=== PATIENT | female | born 1940 | race Caucasian/White ===

== ENCOUNTER 2019-04-20 13:02 | Outpatient (CLI) | payer MEDICARE, BC | END 2019-04-20 13:03 | disposition critical access hospital (66) | LOC: EMS 13:02 | PROVIDERS: ATTEND Surgery | DX: R51 Headache (principal); M54.5 Low back pain; W17.89XA Other fall from one level to another, initial encounter; Y93.H2 Activity, gardening and landscaping; Y92.007 Garden or yard of unspecified non-institutional (private) residence as the place of occurrence of the external cause | CPT/HCPCS: A0425; A0429 ==

== ENCOUNTER 2019-04-20 13:24 | Emergency (ER) | payer MEDICARE, BC ==
--- NOTE | 2019-04-20 13:22 | ED Physician Documentation ---
PD HPI Fall - Stated complaint Stated Complaint: FALL - History obtained from History obtained from: Patient - History of Present Illness Fall distance: Standing position, Less than 5ft Where injury occurred: Home Timing - onset: Today Injury(ies) location: Back Pain level now: 9 Associated symptoms: No: LOC, Amnesia, Neck pain, Paresthesias Worsens with: Movement Similar symptoms before: Has not had sx before Recently seen: Not recently seen - Additional information Additional information: This is a 78-year-old woman who was in the area of her yard and managed to go over the bulkhead onto the beach below. She estimates it was about 3 feet fall landing on rocks and see grass. She says she landed flat on her back. She had immediate pain in her lower back. She was unable to get up and laid there calling for help [place] heard her and was able to get the attention of some neighbors on [place]. At one point she sat up thinking she was getting up to get herself out of the situation with the pain in her back was so intense she had to lay back down. She thinks she may have laid there somewhere around 10 minutes. Ambulance came down onto the beach to get her off placing her on a backboard in a cervical collar. She is pain complaining of pain only in her back at a 9 out of 10. She did not hit her head she did not pass out. She has no pain radiating down her legs and no numbness or tingling. She is having trouble breathing just because it hurts to take a deep breath. She has had prior left-sided low back pain but nothing significant. She does have a history of osteoporosis. Review of Systems Respiratory: reports: Dyspnea Musculoskeletal: reports: Back pain. denies: Neck pain Neurologic: denies: Generalized weakness, Focal weakness, Numbness PD PAST MEDICAL HISTORY - Past Medical History Musculoskeletal: Osteoporosis - Present Medications Home Medications: Ambulatory Orders Medication Instructions Recorded Confirmed Acyclovir [Zovirax] 1,000 mg PO 04/20/19 Atorvastatin [Lipitor] 10 mg 04/20/19 Cyclobenzaprine [Flexeril] 10 mg PO TID PRN #20 tablet 04/20/19 Hydrocodone/Acetaminophen 1 - 2 each PO Q6H PRN #14 tablet 04/20/19 [Hydrocodon-Acetaminophen 5-325] - Allergies Allergies/Adverse Reactions: Allergies Allergy/AdvReac Type Severity Reaction Status Date / Time Sulfa (Sulfonamide Allergy Unknown Verified 04/20/19 13:33 Antibiotics) - Living Situation Living Situation: reports: With friend(s) Living Arrangement: reports: At home PD ED PE NORMAL - Vitals Vital signs reviewed: Yes - General General: Alert and oriented X 3, No acute distress, Well developed/nourished, Other (Patient is in a cervical collar and on a backboard.) - HEENT HEENT: Atraumatic, PERRL, EOMI, Moist mucous membranes - Neck Neck: Other (Remained in cervical collar until imaging could be cleared.) - Cardiac Cardiac: RRR, No murmur - Respiratory Respiratory: No respiratory distress - Abdomen Abdomen: Normal bowel sounds, Soft, Non tender, No organomegaly - Back Back: Other (Patient was logrolled. She had pain at the lower thoracic upper lumbar region as well as the lower lumbar midline. There is no bruising or open wound. Pelvis is stable and nontender. No pain with palpation over the chest wall. Extremities are atraumatic.) - Derm Derm: Normal color, Warm and dry, Other (No obvious abrasion or laceration.) - Extremities Extremities: No deformity, Normal ROM s pain, No edema - Neuro Neuro: Alert and oriented X 3, x ray technologist 2-12 intact, No motor deficit, No sensory deficit, Normal speech Results - Vitals Vitals: Vital Signs - 24 hr 04/20/19 04/20/19 04/20/19 13:29 14:05 15:02 Temperature 37.1 C Heart Rate 71 86 71 Respiratory 16 18 16 Rate Blood Pressure 151/84 H 142/85 H 131/73 H O2 Saturation 99 99 97 04/20/19 16:50 Temperature Heart Rate 73 Respiratory 15 Rate Blood Pressure 139/66 H O2 Saturation 98 Oxygen O2 Source Room air - Labs Labs: Laboratory Tests 04/20/19 04/20/19 04/20/19 14:00 14:00 16:17 WBC 7.9 RBC 4.04 L Hgb 14.4 Hct 42.5 MCV 105.2 H MCH 35.6 H MCHC 33.8 RDW 13.9 Plt Count 198 MPV 7.5 L Neut # (Auto) 5.7 Lymph # (Auto) 1.5 Gonzales # (Auto) 0.4 Eos # (Auto) 0.1 Baso # (Auto) 0.1 Absolute Nucleated RBC 0.00 Nucleated RBC % 0.0 Sodium 139 Potassium 4.0 Chloride 106 Carbon Dioxide 24 Anion Gap 9.0 BUN 16 Creatinine 0.9 Estimated GFR (MDRD) 61 L Glucose 99 POC Whole Bld Glucose 85 Calcium 9.6 PD MEDICAL DECISION MAKING - ED course Complexity details: re-evaluated patient, d/w patient, d/w family ED course: Patient has superior endplate compression fractures T11 and L1. She received morphine IV for the pain and and she started developing some spasms so was given Ativan. She has no neurological deficits will be treated with a TLSO brace. This was applied here in the emergency department she did require some Zofran because she got woozy when she stood up. She was able to ambulate and is discharged with prescription for hydrocodone and instructed to follow-up with her primary care provider this week. Departure - Departure Disposition: 01 Home, Self Care Clinical Impression: Fracture, thoracic vertebra, compression, Fracture, lumbar vertebra, compression Condition: Good Instructions: ED Fx Comp Vertebral Follow-Up: TAVIA ROMO MD [Physician No Access] - Prescriptions: Cyclobenzaprine [Flexeril] 10 mg PO TID PRN #20 tablet PRN Reason: Spasms Hydrocodone/Acetaminophen [Hydrocodon-Acetaminophen 5-325] 1 - 2 each PO Q6H PRN #14 tablet PRN Reason: pain Comments: Take the hydrocodone if needed for pain. He can also use the Flexeril if you are having muscle spasms but be careful about combining the 2 because they may make you very sleepy. Brace is intended to be worn unless you are changing your close or eating. Follow-up with your primary care provider this coming week for further management. There was also concern on your cervical spine CT that there is a fullness in your neck and it is recommended that it be visualized, this will require referral to an ENT surgeon which I would recommend you talk to your primary care provider about. Discharge Date/Time: 04/20/19 17:28
[2019-04-20] MEDS ORDERED: MORPHINE 2 MG/ML SYRINGE IVP STA ×2 (13:45→14:52)
[2019-04-20] MEDS ORDERED: ONDANSETRON 4 MG/2 ML VIAL IVP STA (13:46)
[2019-04-20] MEDS ORDERED: SODIUM CHLORIDE 0.9% 1,000 ML IV ONE (13:54)
[2019-04-20 14:22] LABS: BASOPHILS # (AUTO) 0.1 10^3/uL (0.0-0.1); BASOPHILS % (AUTO) 0.8 %; EOSINOPHILS # (AUTO) 0.1 10^3/uL (0.0-0.7); EOSINOPHILS % (AUTO) 1.5 %; HGB - HEMOGLOBIN 14.4 g/dL (12.0-16.0); LYMPHOCYTES # (AUTO) 1.5 10^3/uL (1.5-3.5); LYMPHOCYTES % (AUTO) 19.4 %; MEAN CORPUSCULAR HEMOGLOBIN 35.6 pg (27.0-31.0); MEAN CORPUSCULAR HGB CONC 33.8 g/dL (32.0-36.0); MEAN CORPUSCULAR VOLUME 105.2 fL (81.0-99.0); MEAN PLATELET VOLUME 7.5 fL (7.9-10.8); MONOCYTES # (AUTO) 0.4 10^3/uL (0.0-1.0); MONOCYTES % (AUTO) 5.3 %; NEUTROPHILS # (AUTO) 5.7 10^3/uL (1.5-6.6); PLT - PLATELET COUNT 198 10^3/uL (130-450); RED BLOOD COUNT 4.04 10^6/uL (4.20-5.40); RED CELL DISTRIBUTION WIDTH 13.9 % (12.0-15.0); WHITE BLOOD COUNT 7.9 x10^3/uL (4.8-10.8)
[2019-04-20 14:30] LABS: CALCIUM 9.6 mg/dL (8.5-10.3); CREATININE 0.9 mg/dL (0.4-1.0)
--- NOTE | 2019-04-20 15:18 | CT Report ---
Reason: back pain Procedure Date: 04/20/2019 Accession Number: [id number] / [id number] Procedure: CT - CERVICAL SPINE WO CPT Code: FULL RESULT: EXAM: CT CERVICAL SPINE WITHOUT CONTRAST. DATE: 04/20/2019 02:28 PM. HISTORY: 78-year-old with fall from 3 feet onto back presenting with neck pain. Evaluate for cervical pathology. COMPARISONS: None. TECHNIQUE: Thin-section axial images were acquired of the cervical spine without contrast. Post-processing: Coronal and sagittal reformats. Other: None. In accordance with CT protocol optimization, one or more of the following dose reduction techniques were utilized for this exam: automated exposure control, adjustment of mA and/or KV based on patient size, or use of iterative reconstructive technique. FINDINGS: Alignment: Cervical lordosis. There is minimal 2 mm of posterior subluxation of C4 on C5. No significant scoliotic curvature. Bones: No fracture or bone lesion. Interspace Levels/Facets: There is mild to moderate endplate degenerative change, Schmorl's node formation, and mild to moderate loss of disk height seen throughout the cervical spine. C1-C2: Unremarkable. C2-C3: Minimal broad-based disk osteophyte complex. No spinal canal stenosis. No neural foraminal narrowing. C3-C4: Small broad-based disk osteophyte complex. Bilateral uncovertebral osteophyte and arthritic facet disease, greater on the right. Mild spinal canal stenosis. Mild to moderate right and mild left neural foraminal narrowing. C4-C5: Moderate broad-based disk osteophyte complex. Bilateral uncovertebral osteophyte and arthritic facet disease, greater on the right. Mild to moderate spinal canal stenosis. Moderate to severe right and mild to moderate left neural foraminal narrowing. C5-C6: Small broad-based disk osteophyte complex. Bilateral uncovertebral osteophyte and arthritic facet disease, greater on the right. Mild to moderate spinal canal stenosis. Moderate to severe right and mild left neural foraminal narrowing. C6-C7: Broad-based disk osteophyte complex eccentric to the right. Bilateral uncovertebral osteophyte and arthritic facet disease. Mild spinal canal stenosis with effacement of right lateral recess. Mild to moderate bilateral neural foraminal narrowing. C7-T1: Unremarkable. Musculature: There is mild fatty atrophy of the posterior spinal musculature. Other: Incompletely evaluated is atretic right maxillary sinus with mild mucosal thickening. Mastoid air cells and middle ear cavities appear clear. There appears to be prominent soft tissue seen within the right vallecula effacing the right aspect of the vallecula. Otherwise the pharynx and larynx appear normal. Visualized soft tissues of the neck appear normal. The thyroid appears normal. Small subcentimeter cervical nodes are seen throughout the neck. There is pleural-parenchymal scarring in the visualized lung apices. IMPRESSION: 1. No definite acute fracture or traumatic subluxation of the cervical spine seen. 2. Multilevel degenerative changes, as detailed above. 3. There appears to be prominent soft tissue seen within the right vallecula effacing the right aspect of the vallecula. This may represent polyp or mucosal retention cyst. Correlation with direct visualization is suggested. RADIA
--- NOTE | 2019-04-20 15:20 | CT Report ---
Reason: back pain; trauma Procedure Date: 04/20/2019 Accession Number: [id number] / [id number] Procedure: CT - LUMBAR SPINE WO CPT Code: FULL RESULT: EXAM: CT LUMBAR SPINE WITHOUT CONTRAST. EXAM DATE: 04/20/2019 02:31 PM. CLINICAL HISTORY: Back pain. Fall. Lower back pain radiating up the left side. COMPARISONS: None. TECHNIQUE: Thin-section axial images were acquired of the lumbar spine from T12 to S1 without contrast. Post-processing: Coronal and sagittal reformats. Other: None. In accordance with CT protocol optimization, one or more of the following dose reduction techniques were utilized for this exam: automated exposure control, adjustment of mA and/or KV based on patient size, or use of iterative reconstructive technique. FINDINGS: Alignment: Slight levoscoliosis of the upper lumbar spine. No spondylolisthesis. Bones: Five [id number] lumbar vertebral bodies are present. Degenerative spurring. Superior endplate L1 compression fracture is present with greatest degree of height loss anteriorly and superior Virgilio with approximately 20-30% of vertebral body height loss. There is extent posteriorly although without significant involvement of the vertebral body posteriorly or significant retropulsion. No extent of the fracture is seen into the posterior elements. Disk Levels/Facets: T12-L1: Facet arthropathy. L1-L2: Facet arthropathy. L2-L3: Mild to moderate facet arthropathy. Mild circumferential disk protrusion. L3-L4: Disk space narrowing. Circumferential disk protrusion. Moderate facet arthropathy. Ligamentum flavum hypertrophy. Mild bilateral neural foraminal narrowing. Central canal narrowing. L4-L5: Marked disk space narrowing and endplate sclerosis. Osteophyte formation. Facet arthropathy. Mild to moderate bilateral neural foraminal narrowing. L5-S1: Facet arthropathy. Musculature: Normal. No fatty atrophy. Other: Status post cholecystectomy. Biliary dilatation noted. 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 Mild bilateral prominent extra renal pelvises . Marked distention of the urinary bladder. Vascular calcifications. IMPRESSION: 1. Superior endplate L1 compression fracture, type A1. 2. Degenerative changes of the lumbar spine greatest at L3-L4 and L4-L5. RADIA
--- NOTE | 2019-04-20 15:26 | CT Report ---
Reason: back pain; trauma Procedure Date: 04/20/2019 Accession Number: [id number] / [id number] Procedure: CT - THORACIC SPINE WO CPT Code: FULL RESULT: EXAM: CT THORACIC SPINE WITHOUT CONTRAST. EXAM DATE: 04/20/2019 02:43 PM. CLINICAL HISTORY: Back pain. Fall. Lower back pain radiating up left side. COMPARISONS: LUMBAR SPINE W/O 04/20/2019 2:31 PM, CERVICAL SPINE W/O 04/20/2019 2:28 PM. TECHNIQUE: Thin-section axial images were acquired of the thoracic spine from C7 to L1 without contrast. Post-processing: Coronal and sagittal reformats. Other: None. In accordance with CT protocol optimization, one or more of the following dose reduction techniques were utilized for this exam: automated exposure control, adjustment of mA and/or KV based on patient size, or use of iterative reconstructive technique. FINDINGS: Alignment: No scoliosis or spondylolisthesis. Bones: Superior endplate T11 vertebral body fracture is seen with approximately 10-20% loss of largely anterior vertebral body height. Slight offset of the anterior fracture fragment from the remainder of the vertebral body up to 1-2 mm. No posterior extent into the posterior aspect of the vertebral body or posterior elements. No retropulsion of fracture fragments. Degenerative spurring noted. Superior endplate L1 fracture better seen on the CT of the lumbar spine. Mild degenerative spurring. Disk Levels/Facets: C7-T1: Unremarkable. T1-T2: Unremarkable. T2-T3: Unremarkable. T3-T4: Mild degenerative changes. T4-T5: Mild degenerative changes. T5-T6: Mild degenerative changes. T6-T7: Unremarkable. T7-T8: Unremarkable. T8-T9: Unremarkable. T9-T10: Unremarkable. T10-T11: Unremarkable. T11-T12: Unremarkable. T12-L1: Unremarkable. Musculature: Normal. No fatty atrophy. Other: No endobronchial obstruction is identified . Biapical parenchymal scarring and pleural thickening. Bibasilar scar/atelectasis. Visualized thyroid gland is unremarkable. Coronary artery calcified plaque. Small hiatal hernia. Status post cholecystectomy. There is biliary dilatation. Extrarenal pelvises/mild hydronephrosis of both kidneys. Vascular calcifications. Hematoma seen surrounding the T11 vertebral body fracture. IMPRESSION: 1. Superior endplate T11 compression fracture, type A1. 2. Degenerative changes of the thoracic spine. RADIA
[2019-04-20] MEDS ORDERED: diazePAM 5 MG TABLET PO STA (15:58)
[2019-04-20] MEDS ORDERED: ONDANSETRON ODT 4 MG TABLET TL STA (16:26)
[2019-04-20] MEDS ORDERED: HYDROcod/ACET 5/325 Prepack 4 PO STA (16:53)
[2019-04-20 17:30] VITALS: BP 139/66
== END 2019-04-20 17:28 | disposition home or self-care (01) ==
LOC: EDBD → ED 13:24
DX: S32.019A Unspecified fracture of first lumbar vertebra, initial encounter for closed fracture (principal); S22.089A Unspecified fracture of T11-T12 vertebra, initial encounter for closed fracture; W17.89XA Other fall from one level to another, initial encounter; Y93.H2 Activity, gardening and landscaping; Y92.007 Garden or yard of unspecified non-institutional (private) residence as the place of occurrence of the external cause; M62.838 Other muscle spasm; M81.0 Age-related osteoporosis without current pathological fracture; M51.34 Other intervertebral disc degeneration, thoracic region; M48.02 Spinal stenosis, cervical region; M51.26 Other intervertebral disc displacement, lumbar region; M25.78 Osteophyte, vertebrae
CPT/HCPCS: 36415; 72125; 72128; 72131; 80048; 85025; 96374; 96376; 99283; 99284; A9270; J2270; Q0162

== ENCOUNTER 2020-06-10 15:12 | Outpatient (CLI) | payer MEDICARE, BC ==
[2020-06-10 15:39] LABS: BASOPHILS # (AUTO) 0.1 10^3/uL (0.0-0.1); BASOPHILS % (AUTO) 0.9 %; EOSINOPHILS # (AUTO) 0.2 10^3/uL (0.0-0.7); EOSINOPHILS % (AUTO) 2.3 %; HGB - HEMOGLOBIN 14.7 g/dL (12.0-16.0); LYMPHOCYTES # (AUTO) 1.8 10^3/uL (1.5-3.5); LYMPHOCYTES % (AUTO) 25.9 %; MEAN CORPUSCULAR HEMOGLOBIN 36.6 pg (27.0-31.0); MEAN CORPUSCULAR HGB CONC 34.3 g/dL (32.0-36.0); MEAN CORPUSCULAR VOLUME 106.7 fL (81.0-99.0); MEAN PLATELET VOLUME 8.6 fL (7.9-10.8); MONOCYTES # (AUTO) 0.5 10^3/uL (0.0-1.0); MONOCYTES % (AUTO) 7.8 %; NEUTROPHILS # (AUTO) 4.3 10^3/uL (1.5-6.6); NEUTROPHILS % (AUTO) 62.8 %; PLT - PLATELET COUNT 220 10^3/uL (130-450); RED BLOOD COUNT 4.02 10^6/uL (4.20-5.40); RED CELL DISTRIBUTION WIDTH 13.2 % (12.0-15.0); WHITE BLOOD COUNT 6.9 x10^3/uL (4.8-10.8)
== END 2020-06-10 15:13 | disposition home or self-care (01) ==
LOC: LAB 15:12
PROVIDERS: ATTEND Ophthalmology
DX: R51 Headache (principal)
CPT/HCPCS: 36415; 85025; 85651; 86140